=== PATIENT | female | born 1990 | race Caucasian/White ===

== ENCOUNTER 2020-07-17 10:38 | Inpatient (IN) | payer BC ==
[2020-07-17] MEDS ORDERED: Sodium Chloride 0.9% 10 ML SDV IV PRN (10:59)
[2020-07-17] MEDS ORDERED: Water For Irrigation,Sterile 1,000 ML Container IRR PRN (10:59)
[2020-07-17] MEDS ORDERED: Carboprost Tromethamine 250 MCG/1 ML Amp IM PRN (10:59)
[2020-07-17] MEDS ORDERED: Nalbuphine 10 MG/1 ML Vial IVPUSH PRN (10:59)
[2020-07-17] MEDS ORDERED: Butorphanol 1 MG/ML SDV IVPUSH PRN (10:59)
[2020-07-17] MEDS ORDERED: Sodium Chloride 0.9% 10 ML Syringe FLUSH PRN (10:59)
[2020-07-17] MEDS ORDERED: Tranexamic Acid 1,000 MG in Sodium Chloride 0.9% 100 ML IV PRN (10:59)
[2020-07-17] MEDS ORDERED: Lidocaine 1% 50 ML MDV INJECT PRN (10:59)
[2020-07-17] MEDS ORDERED: Methylergonovine 0.2 MG/1 ML Amp IM PRN (10:59)
[2020-07-17] MEDS ORDERED: Terbutaline 1 MG/ML SDV SUBCUT PRN (10:59)
[2020-07-17] MEDS ORDERED: Misoprostol 200 MCG Tab PO PRN (10:59)
[2020-07-17] MEDS ORDERED: Ondansetron 4 MG/2 ML SDV IVPUSH PRN (10:59)
[2020-07-17] MEDS ORDERED: Sodium Chloride 0.9% 2.5 ML Syringe FLUSH PRN (10:59)
[2020-07-17] MEDS ORDERED: Oxytocin/0.9 % Sodium Chloride 30 UNIT/500 ML BAG IV SCH ×2 (11:00)
[2020-07-17] MEDS ORDERED: Ampicillin 2 GM in Sodium Chloride 0.9% 100 ML IV ONE (11:30)
[2020-07-17] MEDS ORDERED: Misoprostol 25 MCG (1/4 of 100 MCG) Tab VAG PRN (11:30)
[2020-07-17] MEDS: Lactated Ringers 1,000 ML IV SCH ×2 (11:56→20:26)
[2020-07-17 12:51] LABS: BLOOD UREA NITROGEN,BUN 7 mg/dL (7.0-18.0); CHLORIDE,CL 105 mmol/L (98-107); GLUCOSE RANDOM 94 mg/dL (74-106); POTASSIUM,K 3.8 mmol/L (3.5-5.1); SODIUM,NA 139 mmol/L (136-145)
[2020-07-17] MEDS ORDERED: Ampicillin 1 GM in Sodium Chloride 0.9% 50 ML IV SCH (15:30)
[2020-07-17] MEDS: Ampicillin 1 GM in Sodium Chloride 0.9% 50 ML IV SCH ×2 (16:12→20:26)
[2020-07-17] MEDS: Misoprostol 25 MCG (1/4 of 100 MCG) Tab VAG PRN ×2 (16:13→20:27)
[2020-07-18] MEDS: Ampicillin 1 GM in Sodium Chloride 0.9% 50 ML IV SCH ×5 (00:31→16:11)
[2020-07-18] MEDS: Misoprostol 25 MCG (1/4 of 100 MCG) Tab VAG PRN (02:16)
[2020-07-18] MEDS ORDERED: Oxytocin/0.9 % Sodium Chloride 30 UNIT/500 ML BAG ONE (05:32)
[2020-07-18] MEDS: Lactated Ringers 1,000 ML IV SCH ×4 (09:01→23:37)
[2020-07-18] MEDS ORDERED: fentaNYL 100 MCG/2 ML SDV ONE ×3 (09:53→22:30)
[2020-07-18] MEDS ORDERED: Ropivacaine HCl/PF 100 ML ONE (09:53)
[2020-07-18] MEDS ORDERED: Lidocaine 1% 2 ML ONE (10:11)
--- NOTE | 2020-07-18 10:32 | PCM.PREANE ---
Preanesthetic Assessment - Anesthesia/Transfusion/Family Hx Anesthesia History: No Prior Anesthesia Family History of Anesthesia Reaction: No - Physical Assessment NPO Status Date: 07/18/20 NPO Status Time: 00:05 Height: 1.65 m Weight: 85.275 kg ASA Class: 2 - Lab Values: Laboratory Last Values WBC 7.79 K/uL (4.0-11.0) 07/17/20 11:15 RBC 4.46 M/uL (4.30-5.90) 07/17/20 11:15 Hgb 12.1 g/dL (12.0-16.0) 07/17/20 11:15 Hct 38.2 % (36.0-46.0) 07/17/20 11:15 MCV 85.7 fL (80.0-98.0) 07/17/20 11:15 MCH 27.1 pg (27.0-32.0) 07/17/20 11:15 MCHC 31.7 g/dL (31.0-37.0) 07/17/20 11:15 RDW Std Deviation 45.0 fl (28.0-62.0) 07/17/20 11:15 RDW Coeff of Nohemy 15 % (11.0-15.0) 07/17/20 11:15 Plt Count 201 K/uL (150-400) 07/17/20 11:15 MPV 11.50 fL (7.40-12.00) 07/17/20 11:15 Nucleated RBC % 0.0 /100WBC 07/17/20 11:15 Nucleated RBCs # 0 K/uL 07/17/20 11:15 Sodium 139 mmol/L (136-145) 07/17/20 12:23 Potassium 3.8 mmol/L (3.5-5.1) 07/17/20 12:23 Chloride 105 mmol/L (98-107) 07/17/20 12:23 Carbon Dioxide 21.0 mmol/L (21.0-32.0) 07/17/20 12:23 BUN 7 mg/dL (7.0-18.0) 07/17/20 12:23 Creatinine 0.7 mg/dL (0.6-1.0) 07/17/20 12:23 Est Cr Clr Drug Dosing 108.63 mL/min 07/17/20 12:23 Estimated GFR (MDRD) > 60.0 ml/min 07/17/20 12:23 Glucose 94 mg/dL (74-106) 07/17/20 12:23 Uric Acid 2.7 mg/dL (2.6-7.2) 07/17/20 12:23 Calcium 8.8 mg/dL (8.5-10.1) 07/17/20 12:23 Total Bilirubin 0.3 mg/dL (0.2-1.0) 07/17/20 12:23 AST 14 IU/L (15-37) L 07/17/20 12:23 ALT 15 IU/L (14-63) 07/17/20 12:23 Alkaline Phosphatase 164 U/L (46-116) H 07/17/20 12:23 Total Protein 6.0 g/dL (6.4-8.2) L 07/17/20 12:23 Albumin 2.4 g/dL (3.4-5.0) L 07/17/20 12:23 Globulin 3.6 g/dL (2.6-4.0) 07/17/20 12:23 Albumin/Globulin Ratio 0.7 (0.9-1.6) L 07/17/20 12:23 Ur Random Creatinine 39.4 mg/dL 07/17/20 14:15 U Random Total Protein 23.2 mg/dL (<11.9) H 07/17/20 14:15 Protein/Creatinin Ratio 0.6 07/17/20 14:15 SARS-CoV-2 RNA (RODERICK) NEGATIVE (NEGATIVE) 07/17/20 12:40 Blood Type A POSITIVE 07/17/20 11:15 Antibody Screen NEGATIVE 07/17/20 11:15 - Allergies Allergies/Adverse Reactions: Allergies Allergy/AdvReac Type Severity Reaction Status Date / Time No Known Allergies Allergy Verified 07/17/20 10:57 - Acknowledgements Anesthesia Type Planned: Epidural Pt an Appropriate Candidate for the Planned Anesthesia: Yes Alternatives and Risks of Anesthesia Discussed w Pt/Guardian: Yes Pt/Guardian Understands and Agrees with Anesthesia Plan: Yes PreAnesthesia Questionnaire 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: Musculoskeletal History: Reports: Other (See Below) Other Musculoskeletal History: Raynaud's syndrome Psychiatric History: Reports: Anxiety Hematologic History: Reports: B12 Deficiency - Past Surgical History HEENT Surgical History: Reports: Other (See Below) Other HEENT Surgeries/Procedures: [place] teeth extraction - SUBSTANCE USE Tobacco Use Status *Q: Former Tobacco User Tobacco Use Within Last Twelve Months: Cigarettes Recreational Drug Use History: No - HOME MEDS Home Medications: Home Meds Pnv No.95/Ferrous Fum/Folic AC [ Multivitamin Tablet] 1 each PO DAILY 07/17/20 [History] Sertraline [Zoloft] 1 tab PO DAILY 07/17/20 [History] - CURRENT (IN HOUSE) MEDS Current Meds: Current Medications Butorphanol Tartrate (Stadol) 1 mg IVPUSH Q1H PRN PRN Reason: Pain Last Admin: 07/18/20 08:10 Dose: 1 mg Documented by: Carboprost Tromethamine (Hemabate Ds) 250 mcg IM ASDIRECTED PRN PRN Reason: Post Hemorrhage Oxytocin/Sodium Chloride (Oxytocin 30 Unit/500 Ml-Ns) 30 unit in 500 mls @ 500 mls/hr IV TITRATE [facility] Tranexamic Acid 1,000 mg/ (Sodium Chloride) 110 mls @ 660 mls/hr IV ONETIME PRN PRN Reason: Bleeding Oxytocin/Sodium Chloride (Oxytocin 30 Unit/500 Ml-Ns) 30 unit in 500 mls @ 2 mls/hr IV TITRATE [facility]; Protocol Last Titration: 07/18/20 09:45 Dose: 999 munits/min, 999 mls/hr Documented by: Lactated Ringer's (Ringers, Lactated) 1,000 mls @ 150 mls/hr IV ASDIRECTED [facility] Last Admin: 07/18/20 09:01 Dose: 150 mls/hr Documented by: Ampicillin Sodium 1 gm/ Sodium (Chloride) 50 mls @ 100 mls/hr IV Q4H [facility] Last Admin: 07/18/20 08:11 Dose: 100 mls/hr Documented by: Lidocaine HCl (Xylocaine 1%) 50 ml INJECT ONETIME PRN PRN Reason: Laceration repair Methylergonovine Maleate (Methergine) 0.2 mg IM ASDIRECTED PRN PRN Reason: Post Hemorrhage Misoprostol (Cytotec) 200 mcg PO ONETIME PRN PRN Reason: Post Hemorrhage Misoprostol (Cytotec) 25 mcg VAG ONETIME PRN PRN Reason: Cervical Ripening Last Admin: 07/17/20 12:03 Dose: 25 mcg Documented by: Misoprostol (Cytotec) 25 mcg VAG Q4H PRN PRN Reason: Cervical Ripening Last Admin: 07/18/20 02:16 Dose: 25 mcg Documented by: Nalbuphine HCl (Nubain) 10 mg IVPUSH Q1H PRN PRN Reason: Pain (severe 7-10) Ondansetron HCl (Zofran) 4 mg IVPUSH Q6H PRN PRN Reason: Nausea/Vomiting Last Admin: 07/18/20 09:22 Dose: 4 mg Documented by: Sodium Chloride (Saline Flush) 2.5 ml FLUSH ASDIRECTED PRN PRN Reason: Keep Vein Open Sodium Chloride (Normal Saline) 10 ml IV ASDIRECTED PRN PRN Reason: IV Use Sterile Water (Sterile Water For Irrigation) 1,000 ml IRR ASDIRECTED PRN PRN Reason: delivery Terbutaline Sulfate (Brethine) 0.25 mg SUBCUT ASDIRECTED PRN PRN Reason: Tacysystole Discontinued Medications Ampicillin Sodium 1 gm/ Sodium (Chloride) 50 mls @ 100 mls/hr IV Q4H [facility] Ampicillin Sodium 2 gm/ Sodium (Chloride) 100 mls @ 200 mls/hr IV ONETIME ONE Stop: 07/17/20 11:59 Last Admin: 07/17/20 11:55 Dose: 200 mls/hr Documented by:
--- NOTE | 2020-07-18 10:35 | PCM.PRNOTE ---
- Free Text/Narrative Note: Anes Note Patient requests epidural for L&D. Sitting position. Level L3-L4. Sterile technique. Chloraprep scrub to lumbar area. Sterile fenestrated drape applied. Epidural space achieved after 2 attempts using AMY technique. AMY at 4 cm. Epidural cath threaded 5 cm with ease. Cath secured at 12 cm at skin using s terile clear adhesive dressing. 1020 Test 3 cc 1.5% lido with epi negative. 1023 Load 10 cc 0.2% ropivicaine with 1 mcg cc fentanyl in slow divided doses. 1027 Pump started with 90 cc same solution. Rate is 8 cc hr with 6 cc q 20 min prn bolus. Berta well. Time with patient [id number]. 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
[2020-07-18] MEDS ORDERED: Morphine PF 10 MG/10 ML SDV ONE (20:52)
[2020-07-18] MEDS ORDERED: Lidocaine 2% with EPINEPHrine 1:200,000 20 ML SDV ONE (20:53)
[2020-07-18] MEDS ORDERED: Ondansetron 4 MG/2 ML SDV ONE (20:59)
[2020-07-18] MEDS ORDERED: Oxytocin 10 Units/1 ML SDV ONE (21:01)
[2020-07-18] MEDS ORDERED: ceFAZolin 1 GM Vial ONE (21:20)
[2020-07-18] MEDS ORDERED: Sodium Chloride 0.9% 20 ML ONE (21:20)
[2020-07-18] MEDS ORDERED: Phenylephrine 1% 10 MG/ML SDV ONE (21:39)
[2020-07-18] MEDS ORDERED: Midazolam 1 MG/ML 2 ML SDV ONE (22:00)
[2020-07-18] MEDS ORDERED: Acetaminophen/oxyCODONE 325-5 MG Tab PO PRN ×3 (22:06→23:09)
[2020-07-18] MEDS ORDERED: Nalbuphine 10 MG/1 ML Vial IVPUSH PRN (22:06)
[2020-07-18] MEDS ORDERED: Acetaminophen/HYDROcodone 325-5 MG Tab PO PRN (22:06)
[2020-07-18] MEDS ORDERED: Naloxone 0.4 MG/ML Syringe IVPUSH PRN (22:06)
[2020-07-18] MEDS ORDERED: Propofol 200 MG/20 ML SDV ONE (22:31)
[2020-07-18] MEDS ORDERED: Methylergonovine 0.2 MG/1 ML Amp IM PRN (23:09)
[2020-07-18] MEDS ORDERED: Lanolin 100% Cream 7 GM Tube TOP PRN (23:09)
[2020-07-18] MEDS ORDERED: Oxytocin 10 Units/1 ML SDV IM PRN (23:09)
[2020-07-18] MEDS ORDERED: Bisacodyl 10 MG Supp RECTAL PRN (23:09)
[2020-07-18] MEDS ORDERED: Misoprostol 200 MCG Tab RECTAL PRN (23:09)
[2020-07-18] MEDS ORDERED: Tranexamic Acid 1,000 MG in Sodium Chloride 0.9% 100 ML IV PRN (23:09)
[2020-07-18] MEDS ORDERED: diphenhydrAMINE 50 MG/ML SDV IVPUSH PRN (23:09)
--- NOTE | 2020-07-18 23:38 | PCM.POSTAN ---
POST ANESTHESIA ASSESSMENT - MENTAL STATUS Mental Status: Alert, Oriented - RESPIRATORY Respiratory Status: Respiratory Rate WNL, Airway Patent, O2 Saturation Stable - CARDIOVASCULAR CV Status: Pulse Rate WNL, Blood Pressure Stable - GASTROINTESTINAL GI Status: No Symptoms - POST OP HYDRATION Hydration Status: Adequate & Stable
[2020-07-18] MEDS: Ketorolac 30 MG/ML SDV IVPUSH SCH (23:49)
--- NOTE | 2020-07-18 23:56 | PCM48HPAN ---
Post Anesthesia Note - EVALUATION WITHIN 48HRS OF ANESTHETIC Vital Signs in Normal Range: Yes Patient Participated in Evaluation: Yes Respiratory Function Stable: Yes Airway Patent: Yes Cardiovascular Function Stable: Yes Hydration Status Stable: Yes Pain Control Satisfactory: Yes Nausea and Vomiting Control Satisfactory: Yes Mental Status Recovered: Yes - COMMENTS/OBSERVATIONS Free Text/Narrative:: Denies complaints at this time.
[2020-07-19] MEDS: Ketorolac 30 MG/ML SDV IVPUSH SCH ×4 (05:19→23:13)
[2020-07-19] MEDS: Ondansetron 4 MG/2 ML SDV IVPUSH PRN ×2 (05:51→09:06)
[2020-07-19 06:00] LABS: BLOOD UREA NITROGEN,BUN 8 mg/dL (7.0-18.0); CARBON DIOXIDE,CO2 25.5 mmol/L (21.0-32.0); CHLORIDE,CL 106 mmol/L (98-107); GLUCOSE RANDOM 100 mg/dL (74-106); POTASSIUM,K 3.8 mmol/L (3.5-5.1); SODIUM,NA 138 mmol/L (136-145)
--- NOTE | 2020-07-19 06:24 | OR ---
SURGEON: Saturnino Pereira MD DATE OF PROCEDURE: 07/18/2020 INDICATION FOR PROCEDURE: A 29-year-old, G1, P0, at 40 weeks and 0 days, admitted initially for elective induction of labor. After presenting to Labor and Delivery, she was noted to have mildly elevated blood pressures of 130 to 140s over 80 to 90s. She was otherwise asymptomatic. Preeclampsia labs were done, which had an elevated protein-creatinine ratio of 0.6, otherwise was normal. She is GBS positive and was given ampicillin for GBS prophylaxis. She had otherwise uncomplicated . She received 4 doses of Cytotec for induction, did progress from closed to 2/50/-3. She was AROM'd with clear fluid. She began having strong contractions every 3 to 5 minutes and received an epidural for pain control. She did not make further cervical change; therefore, Pitocin was started. She progressed to 4/80/-1, however, did not make further progress after that. An IUPC was placed to monitor contractions; but the contraction pattern continued to be inadequate despite increasing doses of Pitocin up to 24 units. The baby also had intermittent variable decels and a few prolonged decels to the 70s and 80s, which did recover with repositioning. After approximately 7 hours of induction with Pitocin and not making further cervical dilation, the patient requested to have primary C- section. She was feeling exhausted and very anxious about continuing induction. I discussed with her that the baby has reassuring tracing and she did not have adequate contractions, and may continue to progress in labor if we are able to get her contractions to be adequate. However, she may still need a in the future if she does not make further progress. She decided on proceeding with primary low-transverse section. PREOPERATIVE DIAGNOSES: 1. Long intrauterine at 40 weeks and 0 days. 2. Maternal exhaustion. POSTOPERATIVE DIAGNOSES: 1. Long intrauterine at 40 weeks and 0 days. 2. Maternal exhaustion. PROCEDURE PERFORMED: Primary low-transverse section. ANESTHESIOLOGIST: Dr. Barclay. ANESTHESIA: Epidural. FINDINGS: Normal-appearing uterus. Female infant. score of 8 and 9. weight of 8 pounds 2 ounces. head was asynclitic and ROP presentation. EBL: 700cc DESCRIPTION OF PROCEDURE: The procedure was discussed with the patient. Risks and complications including bleeding, infection, DVTs, and injury to surrounding organs including bladder, bowel, and ureter. The patient expressed understanding. Questions answered and consent signed. The patient was brought to the operating room. She received 2 g of Ancef IV and SCDs. Epidural anesthesia was already in place and topped off. The Leslie catheter was already in place. The abdomen was prepped with chlorhexidine and vagina prepped with Betadine in sterile fashion and draped and tested for anesthesia. Epidural was adequate. Pfannenstiel incision was made with a scalpel and dissected down to fascia. Multiple sites of bleeding were noted and cauterized. The fascia was cleared of subcutaneous tissue and then incised in the midline and extended laterally with curved Arenas scissors. Vania clamps were placed on the superior fascial edge. The rectus muscles were by blunt dissection and using Arenas scissors. The same process was repeated for the inferior fascial edge. The rectus muscles were carefully in the midline. The peritoneum was identified, entered bluntly and opened with Metzenbaum scissors. The opening was then extended bluntly. A large Baljeet O retractor was placed in the peritoneal cavity. The bladder was noted to be away from the lower uterine segment. The uterus was incised using a scalpel and extended bluntly. Clear amniotic fluid was noted. The 's head was noted to be asynclitic and in ROP presentation. It was brought atraumatically to the hysterotomy and delivered with fundal pressure. The shoulder and body were delivered without difficulty. The umbilical cord was clamped and cut after 60 seconds and no longer pulsating. The baby was pink, crying vigorously and moving all extremities immediately after delivery. The baby was handed off to nursery staff to be evaluated. The cord gases were obtained. The placenta was delivered with gentle traction on the umbilical cord. The uterine cavity was cleaned with a lap to remove all remaining membranes. Allis clamps were used to grasp the angles and edges of the incision. The uterine incision was closed in 2 layers. The first layer was closed in running locking fashion using 0 Monocryl. The second layer was closed in vertical imbricated fashion using 0 Vicryl. The uterus was firm and hysterotomy was hemostatic. The paracolic gutters were cleared of any clots. The incision was irrigated and again checked for hemostasis. The peritoneum was brought together in the midline. The rectus muscles were also brought to the midline and reapproximated with 2-0 Vicryl incorporating the underlying peritoneum in a running fashion. The rectus muscle was examined and was found to be hemostatic. The fascia was closed with 0 Vicryl suture in running fashion. The subcutaneous tissue was irrigated and bleeding areas cauterized. The subcutaneous layer was brought together with 2-0 plain suture in running fashion. The skin was closed in in subcuticular fashion using 3-0 Monocryl on a Elder needle. ABD dressing was placed over the incision. The patient was stable and transferred to recovery room in stable condition. VIVI CLARKE /[id number] MTDJose
--- NOTE | 2020-07-19 08:06 | PCM.PNPP ---
- General Info Date of Service: 07/19/20 Functional Status: Reports: Pain Controlled, Other (Had nausea and emesis overnight, now is feeling better and tolerating clears. Zavala in place with good UO. Has been resting and did not ambulate yet.) - Review of Systems General: Reports: No Symptoms HEENT: Reports: No Symptoms Pulmonary: Reports: No Symptoms Cardiovascular: Reports: No Symptoms Gastrointestinal: Reports: Nausea, Vomiting Genitourinary: Reports: No Symptoms Musculoskeletal: Reports: No Symptoms Skin: Reports: No Symptoms Neurological: Reports: No Symptoms Psychiatric: Reports: No Symptoms - Patient Data Vital Signs - Most Recent: Last Vital Signs Temp 36.3 C 07/19/20 05:43 Pulse 72 07/19/20 05:43 Resp 16 07/19/20 05:43 BP 123/73 07/19/20 05:43 Pulse Ox 98 07/19/20 05:43 Weight - Most Recent: 188 lb I&O - Last 24 Hours: Intake & Output 07/18/20 07/19/20 07/19/20 22:59 06:59 14:59 Output Total 1450 Balance -1450 Lab Results - Last 24 Hours: Laboratory Results - last 24 hr 07/18/20 07/19/20 07/19/20 Range/Units 21:56 05:12 05:12 WBC 12.65 H (4.0-11.0) K/uL RBC 3.81 L (4.30-5.90) M/uL Hgb 10.3 L (12.0-16.0) g/dL Hct 32.7 L (36.0-46.0) % MCV 85.8 (80.0-98.0) fL MCH 27.0 (27.0-32.0) pg MCHC 31.5 (31.0-37.0) g/dL RDW Std Deviation 45.2 (28.0-62.0) fl RDW Coeff of Nohemy 15 (11.0-15.0) % Plt Count 154 (150-400) K/uL MPV 11.00 (7.40-12.00) fL Nucleated RBC % 0.0 /100WBC Nucleated RBCs # 0 K/uL Cord ABG pH 7.330 (7.18-7.38) Cord ABG Base Excess -5 (-10--2) Cord VBG pH 7.347 (7.25-7.45) Cord VBG Base Excess -4 (-10--2) Sodium 138 (136-145) mmol/L Potassium 3.8 (3.5-5.1) mmol/L Chloride 106 (98-107) mmol/L Carbon Dioxide 25.5 (21.0-32.0) mmol/L BUN 8 (7.0-18.0) mg/dL Creatinine 0.8 (0.6-1.0) mg/dL Est Cr Clr Drug Dosing 95.05 mL/min Estimated GFR (MDRD) > 60.0 ml/min Glucose 100 (74-106) mg/dL Calcium 7.9 L (8.5-10.1) mg/dL Total Bilirubin 0.3 (0.2-1.0) mg/dL AST 19 (15-37) IU/L ALT 13 L (14-63) IU/L Alkaline Phosphatase 127 H (46-116) U/L Total Protein 5.0 L (6.4-8.2) g/dL Albumin 1.8 L (3.4-5.0) g/dL Globulin 3.2 (2.6-4.0) g/dL Albumin/Globulin Ratio 0.6 L (0.9-1.6) Med Orders - Current: Current Medications Butorphanol Tartrate (Butorphanol 1 Mg/Ml Sdv) 1 mg IVPUSH Q1H PRN PRN Reason: Pain Last Admin: 07/18/20 08:10 Dose: 1 mg Documented by: Carboprost Tromethamine (Hemabate Ds) 250 mcg IM ASDIRECTED PRN PRN Reason: Post Hemorrhage Oxytocin/Sodium Chloride (Oxytocin 30 Unit/500 Ml-Ns) 30 unit in 500 mls @ 500 mls/hr IV TITRATE [facility] Tranexamic Acid 1,000 mg/ (Sodium Chloride) 110 mls @ 660 mls/hr IV ONETIME PRN PRN Reason: Bleeding Oxytocin/Sodium Chloride (Oxytocin 30 Unit/500 Ml-Ns) 30 unit in 500 mls @ 2 mls/hr IV TITRATE [facility]; Protocol Last Titration: 07/18/20 18:13 Dose: 24 munits/min, 24 mls/hr Documented by: Lactated Ringer's (Ringers, Lactated) 1,000 mls @ 150 mls/hr IV ASDIRECTED [facility] Last Admin: 07/18/20 18:13 Dose: 150 mls/hr Documented by: Ampicillin Sodium 1 gm/ Sodium (Chloride) 50 mls @ 100 mls/hr IV Q4H [facility] Last Admin: 07/18/20 16:11 Dose: 100 mls/hr Documented by: Lidocaine HCl (Xylocaine 1%) 50 ml INJECT ONETIME PRN PRN Reason: Laceration repair Methylergonovine Maleate (Methergine) 0.2 mg IM ASDIRECTED PRN PRN Reason: Post Hemorrhage Misoprostol (Cytotec) 200 mcg PO ONETIME PRN PRN Reason: Post Hemorrhage Misoprostol (Cytotec) 25 mcg VAG ONETIME PRN PRN Reason: Cervical Ripening Last Admin: 07/17/20 12:03 Dose: 25 mcg Documented by: Misoprostol (Cytotec) 25 mcg VAG Q4H PRN PRN Reason: Cervical Ripening Last Admin: 07/18/20 02:16 Dose: 25 mcg Documented by: Nalbuphine HCl (Nubain) 10 mg IVPUSH Q1H PRN PRN Reason: Pain (severe 7-10) Ondansetron HCl (Ondansetron 4 Mg/2 Ml Sdv) 4 mg IVPUSH Q6H PRN PRN Reason: Nausea/Vomiting Last Admin: 07/18/20 09:22 Dose: 4 mg Documented by: Sodium Chloride (Saline Flush) 2.5 ml FLUSH ASDIRECTED PRN PRN Reason: Keep Vein Open Sodium Chloride (Normal Saline) 10 ml IV ASDIRECTED PRN PRN Reason: IV Use Sterile Water (Sterile Water For Irrigation) 1,000 ml IRR ASDIRECTED PRN PRN Reason: delivery Terbutaline Sulfate (Brethine) 0.25 mg SUBCUT ASDIRECTED PRN PRN Reason: Tacysystole Discontinued Medications Fentanyl (Fentanyl 100 Mcg/2 Ml Sdv) Confirm Administered Dose 100 mcg .ROUTE .STK-MED ONE Stop: 07/18/20 09:54 Last Admin: 07/18/20 11:12 Dose: Not Given Documented by: Ampicillin Sodium 1 gm/ Sodium (Chloride) 50 mls @ 100 mls/hr IV Q4H [facility] Ampicillin Sodium 2 gm/ Sodium (Chloride) 100 mls @ 200 mls/hr IV ONETIME ONE Stop: 07/17/20 11:59 Last Admin: 07/17/20 11:55 Dose: 200 mls/hr Documented by: Oxytocin/Sodium Chloride (Oxytocin 30 Unit/500 Ml-Ns) Confirm Administered Dose 30 unit in 500 mls @ as directed .ROUTE .STK-MED ONE Stop: 07/18/20 05:33 Last Admin: 07/18/20 11:12 Dose: Not Given Documented by: Ropivacaine (Naropin 0.2%) Confirm Administered Dose 100 mls @ as directed .ROUTE .STK-MED ONE Stop: 07/18/20 09:54 Last Admin: 07/18/20 11:11 Dose: Not Given Documented by: Lidocaine HCl (Xylocaine-Mpf 1%) Confirm Administered Dose 2 mls @ as directed .ROUTE .STK-MED ONE Stop: 07/18/20 10:12 Last Admin: 07/18/20 11:10 Dose: 2 mls/hr Documented by: - Interaction Infant Disposition, : to Nursery Support Person: Significant Other - Recovery Exam Fundal Tone: Firm Fundal Level: At Umbilicus Fundal Placement: Midline Lochia Amount: Scant Lochia Color: Rubra/Red Urinary Elimination: Indwelling Catheter - Exam General: Alert, Oriented, Cooperative, No Acute Distress HEENT: Pupils Equal, Pupils Reactive Neck: Supple, Trachea Midline, No JVD Lungs: Normal Respiratory Effort GI/Abdominal Exam: Soft, Non-Tender, No Distention Extremities: Normal Inspection, Normal Range of Motion, Non-Tender, No Pedal Edema Skin: Warm, Dry, Intact Wound/Incisions: Dressing Dry and Intact Neurological: No New Focal Deficit Psy/Mental Status: Alert, Normal Affect, Normal Mood - Problem List Review Problem List Initiated/Reviewed/Updated: Yes - My Orders Last 24 Hours: My Active Orders 07/18/20 23:09 Patient Status [ADT] Routine Ambulate [RC] PER UNIT ROUTINE Communication Order [RC] PER UNIT ROUTINE Communication Order [RC] Per Unit Routine Intake and Output [RC] Q4H May Shower [RC] ASDIRECTED Notify Provider Intake and Out [RC] ASDIRECTED Notify Provider Vital Signs [RC] ASDIRECTED RT Incentive Spirometry [RC] Q2HWA Acetaminophen/oxyCODONE [Percocet 325-5 MG] 1 tab PO Q4H PRN Acetaminophen/oxyCODONE [Percocet 325-5 MG] 2 tab PO Q4H PRN Lanolin [Lansinoh HPA] See Dose Instructions TOP ASDIRECTED PRN Methylergonovine [Methergine] 0.2 mg IM ONETIME PRN Ondansetron [Zofran] 4 mg IVPUSH Q4H PRN Oxytocin [Pitocin] 10 unit IM ASDIRECTED PRN Tranexamic Acid [Cyklokapron] 1,000 mg Sodium Chloride 0.9% [Normal Saline] 100 ml IV ONETIME bisacodyL [Dulcolax] 10 mg RECTAL ONETIME PRN diphenhydrAMINE [Benadryl] 25 mg IVPUSH Q6H PRN miSOPROStoL [Cytotec] 1,000 mcg RECTAL ONETIME PRN Assess Lochia [WOMSER] Per Unit Routine Assess Uterine Involution [WOMSER] Per Unit Routine Breast Pump [WOMSER] Per Unit Routine Peripheral IV Discontinue [OM.PC] Routine Sequential Compression Device [OM.PC] Per Unit Routine 07/18/20 23:10 Antiembolic Devices [RC] PER UNIT ROUTINE Abdominal Binder [OM.PC] Per Unit Routine 07/18/20 23:15 Ketorolac [Toradol] 30 mg IVPUSH Q6H Lactated Ringers [Ringers, Lactated] 1,000 ml IV ASDIRECTED 07/19/20 09:00 Docusate Sodium [Colace] 100 mg PO BID 07/20/20 05:00 Ibuprofen [Motrin] 800 mg PO Q8H PRN - Assessment Assessment:: 29yo POD1 s/p primary LTCS due to maternal exhaustion after prolonged IOL. Complicated by preeclampsia without severe features. - Plan Plan:: - vital stable. BP normotensive, repeat preeclampsia labs wnl, will continue to monitor closely. - having nausea after pain medications, will avoid IV narcotics. Toradol and percocets for pain - Hgb 10.3, denies s/s of anemia - zavala in place with good UO, will remove this AM Continue inpatient
[2020-07-19] MEDS: Docusate Sodium 100 MG Cap PO SCH ×2 (09:05→20:26)
[2020-07-19] MEDS: Lactated Ringers 1,000 ML IV SCH (09:10)
[2020-07-19] MEDS ORDERED: Ondansetron 4 MG/2 ML SDV IVPUSH PRN (11:56)
[2020-07-19] MEDS ORDERED: ONDANSETRON IV PRN ×2 (12:03)
[2020-07-19] MEDS ORDERED: WATER IV PRN ×2 (12:03)
[2020-07-19] MEDS ORDERED: DEXTROSE 5% IV PRN ×2 (12:03)
[2020-07-20] MEDS ORDERED: Ibuprofen 800 MG Tab PO PRN (05:00)
--- NOTE | 2020-07-20 07:34 | PCM.PNPP ---
- General Info Date of Service: 07/20/20 Admission Dx/Problem (Free Text): Subjective Update: Resting comfortably in bed this morning. Pain well controlled. Ambulating and voiding without difficulty. Tolerating regular diet. Lochia decreasing. Denies preeclampsia sign/symptoms. - General Info Date of Service: 07/20/20 - Patient Data Vital Signs - Most Recent: Last Vital Signs Temp 98.3 F 07/20/20 05:00 Pulse 72 07/20/20 05:00 Resp 16 07/20/20 05:00 BP 120/76 07/20/20 05:00 Pulse Ox 98 07/20/20 05:00 Weight - Most Recent: 188 lb I&O - Last 24 Hours: Intake & Output 07/19/20 07/20/20 07/20/20 22:59 06:59 14:59 Output Total 450 400 Balance -450 -400 Lab Results - Last 24 Hours: Laboratory Results - last 24 hr 07/17/20 Range/Units 11:15 RPR Non-Reac (Non-Reac) Med Orders - Current: Current Medications Butorphanol Tartrate (Butorphanol 1 Mg/Ml Sdv) 1 mg IVPUSH Q1H PRN PRN Reason: Pain Last Admin: 07/18/20 08:10 Dose: 1 mg Documented by: Carboprost Tromethamine (Hemabate Ds) 250 mcg IM ASDIRECTED PRN PRN Reason: Post Hemorrhage Oxytocin/Sodium Chloride (Oxytocin 30 Unit/500 Ml-Ns) 30 unit in 500 mls @ 500 mls/hr IV TITRATE WANDA Tranexamic Acid 1,000 mg/ (Sodium Chloride) 110 mls @ 660 mls/hr IV ONETIME PRN PRN Reason: Bleeding Oxytocin/Sodium Chloride (Oxytocin 30 Unit/500 Ml-Ns) 30 unit in 500 mls @ 2 mls/hr IV TITRATE WANDA; Protocol Last Titration: 07/18/20 18:13 Dose: 24 munits/min, 24 mls/hr Documented by: Lactated Ringer's (Ringers, Lactated) 1,000 mls @ 150 mls/hr IV ASDIRECTED WANDA Last Admin: 07/18/20 18:13 Dose: 150 mls/hr Documented by: Ampicillin Sodium 1 gm/ Sodium (Chloride) 50 mls @ 100 mls/hr IV Q4H WANDA Last Admin: 07/18/20 16:11 Dose: 100 mls/hr Documented by: Lidocaine HCl (Xylocaine 1%) 50 ml INJECT ONETIME PRN PRN Reason: Laceration repair Methylergonovine Maleate (Methergine) 0.2 mg IM ASDIRECTED PRN PRN Reason: Post Hemorrhage Misoprostol (Cytotec) 200 mcg PO ONETIME PRN PRN Reason: Post Hemorrhage Misoprostol (Cytotec) 25 mcg VAG ONETIME PRN PRN Reason: Cervical Ripening Last Admin: 07/17/20 12:03 Dose: 25 mcg Documented by: Misoprostol (Cytotec) 25 mcg VAG Q4H PRN PRN Reason: Cervical Ripening Last Admin: 07/18/20 02:16 Dose: 25 mcg Documented by: Nalbuphine HCl (Nubain) 10 mg IVPUSH Q1H PRN PRN Reason: Pain (severe 7-10) Ondansetron HCl (Ondansetron 4 Mg/2 Ml Sdv) 4 mg IVPUSH Q6H PRN PRN Reason: Nausea/Vomiting Last Admin: 07/18/20 09:22 Dose: 4 mg Documented by: Sodium Chloride (Saline Flush) 2.5 ml FLUSH ASDIRECTED PRN PRN Reason: Keep Vein Open Sodium Chloride (Normal Saline) 10 ml IV ASDIRECTED PRN PRN Reason: IV Use Sterile Water (Sterile Water For Irrigation) 1,000 ml IRR ASDIRECTED PRN PRN Reason: delivery Terbutaline Sulfate (Brethine) 0.25 mg SUBCUT ASDIRECTED PRN PRN Reason: Tacysystole Discontinued Medications Fentanyl (Fentanyl 100 Mcg/2 Ml Sdv) Confirm Administered Dose 100 mcg .ROUTE .STK-MED ONE Stop: 07/18/20 09:54 Last Admin: 07/18/20 11:12 Dose: Not Given Documented by: Ampicillin Sodium 1 gm/ Sodium (Chloride) 50 mls @ 100 mls/hr IV Q4H [facility] Ampicillin Sodium 2 gm/ Sodium (Chloride) 100 mls @ 200 mls/hr IV ONETIME ONE Stop: 07/17/20 11:59 Last Admin: 07/17/20 11:55 Dose: 200 mls/hr Documented by: Oxytocin/Sodium Chloride (Oxytocin 30 Unit/500 Ml-Ns) Confirm Administered Dose 30 unit in 500 mls @ as directed .ROUTE .STK-MED ONE Stop: 07/18/20 05:33 Last Admin: 07/18/20 11:12 Dose: Not Given Documented by: Ropivacaine (Naropin 0.2%) Confirm Administered Dose 100 mls @ as directed .ROUTE .STK-MED ONE Stop: 07/18/20 09:54 Last Admin: 07/18/20 11:11 Dose: Not Given Documented by: Lidocaine HCl (Xylocaine-Mpf 1%) Confirm Administered Dose 2 mls @ as directed .ROUTE .STK-MED ONE Stop: 07/18/20 10:12 Last Admin: 07/18/20 11:10 Dose: 2 mls/hr Documented by: - Interaction Disposition, : in Room with Family Infant Interaction: Holding Feeding: Attempted ; Nursed Fair/Poor Support Person: Significant Other - Recovery Exam Fundal Tone: Firm Fundal Level: At Umbilicus Fundal Placement: Midline Lochia Amount: Scant Lochia Color: Rubra/Red Perineum Description: Intact, Minimal Bruising/Swelling Episiotomy/Laceration: None Bladder Status: Voiding Urinary Elimination: Voided Other Urinary Elimination, : due to void - Exam General: Alert Lungs: Normal Respiratory Effort Cardiovascular: Regular Rate GI/Abdominal Exam: Soft, Non-Tender Extremities: Normal Inspection, Pedal Edema (1+) Skin: Warm, Dry, Intact Wound/Incisions: Healing Well Neurological: No New Focal Deficit Psy/Mental Status: Normal Mood - Problem List Review Problem List Initiated/Reviewed/Updated: Yes - Assessment Assessment:: 29yo POD2 s/p primary LTCS due to maternal exhaustion after prolonged IOL. Complicated by preeclampsia without severe features. - Plan Plan:: - vital stable. BP normotensive, repeat preeclampsia labs wnl, will continue to monitor closely. - having nausea after pain medications, will avoid IV narcotics. Toradol and Percocet for pain - Hgb 10.3, denies s/s of anemia - Ambulating and voiding without difficulty Dispo: stable. Meeting postoperative/ milestones anticipate discharge today pending maternal/ status. Discharge precautions reviewed. Follow up in 2 weeks for incision check and 4 weeks for visit.
== END 2020-07-20 12:10 | disposition home or self-care (01) | DRG 540 ==
LOC: MW.OBCHECK 10:38 → MW.OB 10:40 → MW.OBCHECK 10:58 → MW.OB 10:59 → OBSVTOIN 07-18 21:56 → MW.OB 07-19 00:14
PROVIDERS: ADMIT Obstetrics & Gynecology; ATTEND Obstetrics & Gynecology
PROC: 10D00Z1 Extraction of Products of Conception, Low, Open Approach (ICD-10-PCS; principal; 2020-07-18)
PROC: 10907ZC Drainage of Amniotic Fluid, Therapeutic from Products of Conception, Via Natural or Artificial Opening (ICD-10-PCS; 2020-07-18)
PROC: 3E0P7VZ Introduction of Hormone into Female Reproductive, Via Natural or Artificial Opening (ICD-10-PCS; 2020-07-18)
PROC: 3E033VJ Introduction of Other Hormone into Peripheral Vein, Percutaneous Approach (ICD-10-PCS; 2020-07-18)
PROC: 10H07YZ Insertion of Other Device into Products of Conception, Via Natural or Artificial Opening (ICD-10-PCS; 2020-07-18)
PROC: 3E0R3BZ Introduction of Anesthetic Agent into Spinal Canal, Percutaneous Approach (ICD-10-PCS; 2020-07-18)
PROC: 00HU33Z Insertion of Infusion Device into Spinal Canal, Percutaneous Approach (ICD-10-PCS; 2020-07-18)
DX: O14.04 Mild to moderate pre-eclampsia, complicating childbirth (principal); Z37.0 Single live birth; O99.824 Streptococcus B carrier state complicating childbirth; O75.81 Maternal exhaustion complicating labor and delivery; Z3A.40 40 weeks gestation of pregnancy; Z20.822 Contact with and (suspected) exposure to COVID-19
CPT/HCPCS: 01967; 01968; 36415; 51702; 59025; 80053; 82570; 82803; 84156; 84550; 85027; 86592; 86850; 86900; 86901; A9270-GY; J0131; J0290; J0595; J0690; J1885; J2250; J2270; J2300; J2370; J2405; J2590; J2704; J3010; J7120; U0002

== ENCOUNTER 2022-09-05 06:40 | Day surgery (SDC) | payer BC ==
[~2022-09-05 06:40] MED LIST: Lactated Ringers 1,000 ML IV SCH; Sodium Chloride 0.9% 10 ML Syringe FLUSH PRN; Sodium Chloride 0.9% 2.5 ML Syringe FLUSH PRN; Sodium Chloride 0.9% 20 ML SDV IV PRN; ceFAZolin 2 GM in Sodium Chloride 0.9% 50 ML IV ONE
[2022-09-05] MEDS ORDERED: Ondansetron 4 MG/2 ML SDV IVPUSH PRN (06:47)
[2022-09-05] MEDS ORDERED: Metoclopramide 10 MG/2 ML SDV IVPUSH PRN (06:47)
[2022-09-05] MEDS ORDERED: Morphine 2 MG/ML SYRINGE IVPUSH PRN (06:47)
[2022-09-05] MEDS ORDERED: droPERidol 5 MG/2 ML SDV IVPUSH PRN (06:47)
[2022-09-05] MEDS ORDERED: Albuterol 0.083% 2.5 MG/3 ML Neb Soln NEB PRN (06:47)
[2022-09-05] MEDS ORDERED: Naloxone 0.4 MG/ML SDV IVPUSH PRN (06:47)
[2022-09-05] MEDS ORDERED: fentaNYL 50 MCG/ML SDV IVPUSH PRN (06:47)
[2022-09-05] MEDS ORDERED: HYDROmorphone 1 MG/ML Syringe IVPUSH PRN (06:47)
[2022-09-05] MEDS ORDERED: Bupivacaine 0.5% 30 ML SDV ONE (07:21)
[2022-09-05] MEDS ORDERED: Sugammadex Sodium 200 MG/2 ML VIAL ONE (07:23)
[2022-09-05] MEDS ORDERED: Dexmedetomidine 200 MCG/2 ML SDV ONE (07:23)
[2022-09-05] MEDS ORDERED: fentaNYL 100 MCG/2 ML SDV ONE (07:23)
[2022-09-05] MEDS ORDERED: Propofol 200 MG/20 ML SDV ONE (07:23)
[2022-09-05] MEDS ORDERED: Dexamethasone 4 MG/ML 5 ML MDV ONE (07:23)
[2022-09-05] MEDS ORDERED: Lidocaine 2% 5 ML SDV ONE (07:23)
[2022-09-05] MEDS ORDERED: Rocuronium Bromide 50 MG/5 ML Syringe ONE (07:23)
[2022-09-05] MEDS ORDERED: Water For Injection, Sterile 20 ML ONE ×2 (07:23→07:59)
[2022-09-05] MEDS ORDERED: Ketorolac 30 MG/ML SDV ONE (07:23)
[2022-09-05] MEDS ORDERED: Ondansetron 4 MG/2 ML SDV ONE (07:23)
[2022-09-05] MEDS ORDERED: Ropivacaine 0.5% 5 MG/ML 30 ML SDV ONE (07:28)
[2022-09-05] MEDS ORDERED: ceFAZolin 2 GM Vial ONE (07:51)
[2022-09-05] MEDS ORDERED: fentaNYL 250 MCG/5 ML SDV ONE (08:06)
[2022-09-05] MEDS ORDERED: propofoL 50 ML ONE (08:07)
== END 2022-09-05 09:52 | disposition home or self-care (01) ==
LOC: MW.SDS 06:40
PROVIDERS: ATTEND Surgery
DX: K42.0 Umbilical hernia with obstruction, without gangrene (principal); F41.9 Anxiety disorder, unspecified; G43.909 Migraine, unspecified, not intractable, without status migrainosus; F17.200 Nicotine dependence, unspecified, uncomplicated; Z79.82 Long term (current) use of aspirin; Z79.899 Other long term (current) drug therapy
CPT/HCPCS: 49592; 81025; J0131; J0690; J1100; J1885; J2405; J2704; J2795; J3010; J3490; J7120; 00832; 64488